=== PATIENT | male | born 2000 | race Caucasian/White ===

== ENCOUNTER 2022-07-08 13:57 | Inpatient (IN) ==
[2022-07-08 15:08] LABS: ABS Lymphocytes 1.8 10^3/ul (1.0-4.8); ABS Monocytes 0.5 10^3/ul (0-0.8); ABS Neutrophils 10.6 10^3/ul (1.5-7.7); Eosinophil % 0.1 %; Hematocrit 45 % (42-52); Hemoglobin 15.6 g/dL (14.0-18.0); Lymphocyte % 13.8 %; Mean Corpuscular HGB Conc 35 g/dL (31-36); Mean Corpuscular Hemoglobin 30 pg (27-31); Mean Corpuscular Volume 88 fL (80-94); Mean Platelet Volume 6.9 fL (7.4-10.4); Platelet Count 303 10^3/uL (150-450); Red Blood Count 5.14 10^6 /uL (4.18-5.48); Red Cell Distribution Width 13 % (10-15); White Blood Count 12.9 10^3/uL (3.5-10.8)
[2022-07-08 15:21] LABS: Urine Appearance Clear; Urine Bilirubin Negative (Negative); Urine Blood Negative (Negative); Urine Color Yellow; Urine Glucose Negative (Negative); Urine Ketones 2+ (Negative); Urine Nitrite Negative (Negative); Urine Protein 2+(100 mg/dL) (Negative); Urine Specific Gravity 1.026 (1.002-1.030); Urine Urobilinogen Negative (Negative)
[2022-07-08 15:23] LABS: Urine Benzodiazepine Screen None Detected (None Detect); Urine Cannabinoids Screen Presumptive Positive (None Detect); Urine Opiates Screen None Detected (None Detect)
[2022-07-08 15:31] LABS: Urine Bacteria Absent (Absent); Urine Red Blood Cell Trace(0-2/hpf) (Absent); Urine White Blood Cell Trace(0-5/hpf) (Absent)
[2022-07-08 15:57] LABS: Anion Gap 9 mmol/L (2-11); CO2 Carbon Dioxide 27 mmol/L (22-32); Calcium 9.5 mg/dL (8.6-10.3); Chloride 102 mmol/L (101-111); Potassium 3.8 mmol/L (3.5-5.0); Sodium 138 mmol/L (135-145)
[2022-07-08 16:03] LABS: ALT 18 U/L (7-52); AST 18 U/L (13-39); Acetaminophen < 15 mcg/mL; Albumin/Globulin Ratio 1.9 (1-3); Alcohol, S < 13 mg/dL (<13); Alkaline Phosphatase 58 U/L (35-149); Blood Urea Nitrogen 11 mg/dL (6-24); Creatinine, Serum 1.08 mg/dL (0.67-1.17); Globulin 2.6 g/dL (2-4); Glucose 77 mg/dL (70-100); Salicylate < 2.50 mg/dL (<30); Total Protein 7.6 g/dL (6.4-8.9); eGFR CKD-EPI 99.5 (>60)
[2022-07-08 17:00] LABS: TSH Ultra Thyroid Stim Horm 1.36 mcIU/mL (0.34-5.60)
[2022-07-08] MEDS ORDERED: OLANZapine 5 mg TAB *ODT PO ONE (20:30)
[2022-07-08] MEDS ORDERED: Al Hydrox/Mg Hydrox/Simet LIQ 30 ML UDC PO PRN (20:33)
[2022-07-09] MEDS: Vitamin THERAPEUTIC TAB PO SCH (09:43)
[2022-07-10 07:50] LABS: HDL Cholesterol 28.1 mg/dL
[2022-07-10] MEDS: Vitamin THERAPEUTIC TAB PO SCH (09:10)
[2022-07-11] MEDS: Vitamin THERAPEUTIC TAB PO SCH (07:35)
[2022-07-12] MEDS: Vitamin THERAPEUTIC TAB PO SCH (09:15)
[2022-07-13] MEDS: Vitamin THERAPEUTIC TAB PO SCH (10:15)
[2022-07-14] MEDS: Vitamin THERAPEUTIC TAB PO SCH (08:17)
[2022-07-15] MEDS: Vitamin THERAPEUTIC TAB PO SCH (09:18)
[2022-07-15] MEDS ORDERED: Paliperidone SUSTENNA 234 MG/1.5 ML IM ONE (11:50)
[2022-07-16] MEDS: Vitamin THERAPEUTIC TAB PO SCH (09:24)
[2022-07-17] MEDS: Vitamin THERAPEUTIC TAB PO SCH (08:57)
[2022-07-18 08:09] VITALS: BP 107/74
[2022-07-18] MEDS: Vitamin THERAPEUTIC TAB PO SCH (08:46)
[2022-07-18] MEDS ORDERED: Paliperidone SUSTENNA 156 MG/1 ML IM ONE (09:00)
== END 2022-07-18 14:28 | disposition home or self-care (01) | DRG 885 ==
LOC: ED 13:57 → EDHOLD 19:55 → BSU 21:15
PROVIDERS: ADMIT Psychiatry & Neurology Psychiatry; ATTEND Psychiatry & Neurology Psychiatry